=== PATIENT | female | born 1980 | race Caucasian/White ===

== ENCOUNTER 2017-02-19 19:11 | Emergency (ER) | payer MEDICAID, SELFPAY ==
[~2017-02-19] VITALS: Ht 154.9 cm; Wt 73.1 kg
[2017-02-19] MEDS ORDERED: MONT10TA6 PO (19:18)
[2017-02-19] MEDS ORDERED: DESV100T PO (19:18)
[2017-02-19] MEDS ORDERED: KETOROLAC 30 MG/1 ML IVPush ONE (20:00)
[2017-02-19] MEDS ORDERED: ONDANSETRON 2MG/ML, 2ML IVPush ONE ×2 (20:00→22:30)
[2017-02-19] MEDS ORDERED: SODIUM CHLORIDE FLUSH 10ML SYR IVF ONE (20:00)
[2017-02-19] MEDS ORDERED: SODIUM CHLORIDE 0.9% 1,000ML IVBOLUS ONE (20:00)
[2017-02-19 20:01] LABS: ASPARTATE AMINO TRANSFERASE 15 U/L (15-37); BLOOD UREA NITROGEN 12 mg/dL (7-18)
[2017-02-19] MEDS ORDERED: MORPHINE SULFATE 4 MG/ML, 1ML ONE ×2 (20:12→21:30)
[2017-02-19] MEDS ORDERED: ONDANSETRON 2MG/ML, 2ML ONE (20:13)
[2017-02-19] MEDS ORDERED: KETOROLAC 30 MG/1 ML ONE (20:13)
[2017-02-19] MEDS: MORPHINE SULFATE 4 MG/ML, 1ML IVPush PRN ×2 (20:23→21:34)
[2017-02-19 21:21] LABS: HCG UR OBC PASS
[2017-02-19 22:57] VITALS: BP 124/78
== END 2017-02-19 22:59 | disposition home or self-care (01) ==
LOC: ED 19:58
DX: N13.2 Hydronephrosis with renal and ureteral calculous obstruction (principal); F12.10 Cannabis abuse, uncomplicated; F17.200 Nicotine dependence, unspecified, uncomplicated
CPT/HCPCS: 36415; 74176; 80053; 81001; 81025; 83690; 85025; 87086; 96361; 96374; 96375; 96376; 99285; J1885; J2405; J7030

== ENCOUNTER 2020-02-22 08:03 | Emergency (ER) | payer MEDICAID ==
[~2020-02-22] VITALS: Ht 154.9 cm; Wt 74.0 kg
[~2020-02-22 08:03] MED LIST: DESV100T PO; MONT10TA6 PO
--- NOTE | 2020-02-22 08:56 | NUR ---
[facility]
[2020-02-22] MEDS ORDERED: IBUPROFEN 600 MG TABLET ONE (09:19)
[2020-02-22] MEDS ORDERED: IBUPROFEN 200 MG TABLET ONE (09:23)
[2020-02-22] MEDS ORDERED: IBUPROFEN 200 MG TABLET PO ONE (09:30)
--- NOTE | 2020-02-22 09:39 | NUR ---
PT MEDICATED PER ORDERS FOR PAIN. IMAGING AT BEDSIDE FOR XRAY.
[2020-02-22 10:03] VITALS: BP 161/91
--- NOTE | 2020-02-22 10:26 | NUR ---
ASSSUMED CARE FOR DISCHARGE ONLY Patient/Caregiver given discharge instructions and they have confirmed that they understand the instructions. Patient ambulatory with steady gait.
== END 2020-02-22 10:30 | disposition home or self-care (01) ==
LOC: ED 08:50
DX: M72.2 Plantar fascial fibromatosis (principal); M79.671 Pain in right foot; R26.2 Difficulty in walking, not elsewhere classified; Z88.2 Allergy status to sulfonamides; M79.10 Myalgia, unspecified site
CPT/HCPCS: 99283